=== PATIENT | female | born 1960 ===

== ENCOUNTER 2018-04-23 07:50 | Inpatient (IN) | payer MEDICAID ==
[2018-04-20 08:52] LABS: EOSINOPHILS % (AUTO) 1.4 % (0.0-3.0); HEMATOCRIT 41.4 % (37.0-47.0); HEMOGLOBIN 13.3 G/DL (12.0-16.0); LYMPHOCYTES % (AUTO) 37.5 % (20.0-45.0); MEAN CORPUSCULAR VOLUME 87 FL (80-99); MONOCYTES % (AUTO) 6.5 % (1.0-10.0); NEUTROPHILS % (AUTO) 53.6 % (45.0-75.0); PLATELET COUNT 283 K/UL (150-450); RED BLOOD COUNT 4.73 M/UL (4.20-5.40); RED CELL DISTRIBUTION WIDTH 11.8 % (11.6-14.8); WHITE BLOOD COUNT 6.5 K/UL (4.8-10.8)
[2018-04-20 09:21] LABS: ANION GAP 9 mmol/L (5-15); BLOOD UREA NITROGEN 10 mg/dL (7-18); CALCIUM 8.7 MG/DL (8.5-10.1); CARBON DIOXIDE 28 MMOL/L (21-32); CHLORIDE 105 MMOL/L (98-107); CREATININE 0.7 MG/DL (0.55-1.30); INR 0.9 (0.9-1.1); POTASSIUM 3.6 MMOL/L (3.5-5.1); SODIUM 142 MMOL/L (136-145)
[2018-04-20 09:33] LABS: APPEARANCE,URINE CLEAR; BILIRUBIN, URINE NEGATIVE (NEGATIVE); COLOR,URINE PALE YELLOW; GLUCOSE, URINE (UA) NEGATIVE (NEGATIVE); KETONES,URINE NEGATIVE (NEGATIVE); LEUKOCYTE ESTERASE ,URINE 3+ (NEGATIVE); NITRITE,URINE NEGATIVE (NEGATIVE); PH,URINE 7 (4.5-8.0); PROTEIN,URINE NEGATIVE (NEGATIVE); UROBILINOGEN,URINE NORMAL MG/DL (0.0-1.0)
--- NOTE | 2018-04-20 11:14 | Diagnostic Imaging Report ---
Indication: Cough Technique: 2 views of the chest Comparison: None Findings: Lungs and pleural spaces are clear. The heart size is normal. The bones are unremarkable. No significant interim change. Impression: Negative
--- NOTE | 2018-04-21 13:58 | Cardiology Report ---
APPROVED REPORT EKG Measurement Heart [id number] Normal sinus rhythm Moderate voltage criteria for LVH, may be normal variant Borderline ECG
--- NOTE | 2018-04-22 16:30 | Pre-op HX & Phy Repo 2 SIG ---
DATE OF ADMISSION: 04/23/2018 ANTICIPATED DATE OF SURGERY: April 23, 2018. HISTORY OF PRESENT ILLNESS: The patient is a 57-year-old female in overall good health, who presented recently for screening and had a normal breast examination. Screening mammography revealed a grouping of indeterminate calcifications in the anterior upper outer quadrant of the right breast possibly associated with a mass. She subsequently underwent diagnostic mammogram revealing a nodule in the right breast at 9 o'clock and a 6 mm grouping of heterogeneous calcifications in the upper outer quadrant of the right breast, most likely benign. Ultrasound was then performed revealing a mass at 9 o'clock which was suspicious and located 8 cm from the nipple. Ultrasound-guided core biopsy revealed invasive ductal carcinoma, moderately differentiated. The patient is HER2-negative. She is scheduled to undergo right breast partial mastectomy with preoperative needle localization and right axillary lymph node biopsy. She has been evaluated by Medical Oncology and will follow up after final pathology results. The patient understands she will require radiation therapy after surgery and potential chemotherapy and/or endocrine therapy. PAST MEDICAL HISTORY: MEDICATIONS: None. ALLERGIES: None. OPERATIONS: None. PHYSICAL EXAMINATION: GENERAL: The patient is 4 feet 9 inches, 178 pounds. HEENT: Within normal limits. LUNGS: Clear. HEART: Regular rhythm. BREASTS: Examination revealed [id number]-sized breasts without palpable mass and no skin or nipple changes. There is no palpable axillary or supraclavicular lymphadenopathy. ABDOMEN: Soft. PELVIC: Per primary care physician. RECTAL: Per primary care physician. EXTREMITIES: Without edema. NEUROLOGIC: Physiologic. IMPRESSION: Invasive ductal carcinoma, right breast. PLAN: I have had a full discussion with the patient regarding the nature of her condition, the nature of the surgery, indications, alternatives, options, and risks including bleeding, infection, scarring, distortion of the breast, deviation of the nipple, need for additional surgery based on final pathology, need for additional treatments including radiation therapy and potentially chemotherapy and hormonal therapy. All questions have been answered. The patient understands and agrees to proceed. Remigio Junior M.D. DR: Dee JOB#: [id number] CC:
[2018-04-23] VITALS (14 sets, daily range): BP systolic 116–159; BP diastolic 42–75
[~2018-04-23] VITALS: Ht 142.2 cm; Wt 79.4 kg
[~2018-04-23 07:50] MED LIST: MULTIVITAMINS1 EAC2 ORAL
[2018-04-23] MEDS ORDERED: Bupivacaine 0.5% Inj 30 ml vial INJ ONE (08:59)
[2018-04-23] MEDS ORDERED: Lidocaine 1% 10mg/ml/Epi 0.005mg/ml 30ml vial INJ ONE (08:59)
[2018-04-23] MEDS ORDERED: Midazolam 2mg/2ml Inj ONE (10:20)
[2018-04-23] MEDS ORDERED: fentaNYL 100 mcg/2 mL IV ONE (10:20)
[2018-04-23] MEDS ORDERED: Lidocaine 1% MPF 10mg/ml 5ml ONE (10:24)
[2018-04-23] MEDS ORDERED: Propofol 200mg/20ml IV ONE (10:24)
[2018-04-23] MEDS ORDERED: Ketorolac 30mg Inj ONE (10:24)
[2018-04-23] MEDS ORDERED: Zemuron 50mg/5ml Inj IV ONE (10:35)
--- NOTE | 2018-04-23 10:53 | Pre-Procedure Note/Attestation ---
Pre-Procedure Note/Attestation Complete Prior to Procedure Planned Procedure: right Procedure Narrative: right breast partial mastectomy with needle localization and right axillary lymph node biopsy Indications for Procedure Pre-Operative Diagnosis: invasive ductal carcinoma right breast Attestation I attest that I discussed the nature of the procedure; its benefits; risks and complications; and alternatives (and the risks and benefits of such alternatives ), prior to the procedure, with the patient (or the patient's legal sales service representative). I attest that, if there was a reasonable possibility of needing a blood transfusion, the patient (or the patient's legal sales service representative) was given the [facility] standardized written summary, pursuant to the [place] Blood Safety Act ([place] Health and Safety Code # 1645, as amended). I attest that I re-evaluated the patient just prior to the surgery and that there has been no change in the patient's H&P, except as documented below:none Remigio Junior MD Apr 23, 2018 10:53
[2018-04-23] MEDS ORDERED: Succinylcholine 20mg/ml 10ml vial ONE (11:00)
[2018-04-23] MEDS ORDERED: LR 1000ml ONE (11:00)
[2018-04-23] MEDS ORDERED: NS Irrig 1000ml ONE (11:00)
[2018-04-23] MEDS ORDERED: Sterile Water Irrig 1000ml IRRIG ONE (11:00)
--- NOTE | 2018-04-23 11:02 | Anethesia Preoperative Eval ---
Anesthesia Pre-op PMH/ROS General Date of Evaluation: Apr 23, 2018 Time of Evaluation: 10:59 Anesthesiologist: Ulises ASA Score: ASA 2 Mallampati Score Class I : Soft palate, uvula, fauces, pillars visible Class II: Soft palate, uvula, fauces visible Class III: Soft palate, base of uvula visible Class IV: Only hard plate visible Mallampati Classification: Class II Surgeon: Vernon Diagnosis: R breast CA Surgical Procedure: R partial mastectomy with axillary l/n disection Anesthesia History: none Family History: no anesthesia problems Allergies: Coded Allergies: No Known Allergies (Unverified , 04/22/18) Past Medical History Cardiovascular: Denies: HTN, CAD, ND, valve dz, arrhythmia, other Pulmonary: Denies: asthma, COPD, KYLE, other Gastrointestinal/Genitourinary: Reports: GERD; Denies: CRI, ESRD, other Neurologic/Psychiatric: Denies: dementia, CVA, depression/anxiety, TIA, other Endocrine: Reports: DM - borderline HEENT: Denies: cataract (L), cataract (R), glaucoma, VENETIE (L), VENETIE (R), other Hematology/Immune: Denies: anemia, DVT, bleeding disorder, other Musculoskeletal/Integumentary: Denies: OA, RA, DJD, DDD, edema, other Other: obesity PMH Narrative: as above PSxH Narrative: BTL Anesthesia Pre-op Phys. Exam Physician Exam Last Vital Signs Date Time Temp Pulse Resp B/P (MAP) Pulse Ox O2 Delivery O2 Flow Rate FiO2 04/23/18 08:18 97.9 59 20 159/75 (103) 100 97.9 04/23/18 08:10 Room Air Constitutional: NAD Neurologic: CN 2-12 intact Cardiovascular: no M/R/G Respiratory: CTA Gastrointestinal: other - obesity Airway Exam Mallampati Score: Class II MO: full Neck: short ROM: full Teeth: missing Dentures: no upper, no lower Anesthesia Pre-op A/P Labs see chart Studies Pre-op Studies: EKG - NSR Risk Assessment & Plan Assessment: ASA 2 Plan: GA with ETT PONV prevention Status Change Before Surgery: No Pre-Antibiotics Drug: Ancef 1 gr Given Within 1 Hr of Incision: Yes Time Given: 11:20 Ron Montgomery MD Apr 23, 2018 11:02
[2018-04-23] MEDS ORDERED: Neostigmine 1mg/ml 10ml Inj ONE (11:38)
[2018-04-23] MEDS ORDERED: Glycopyrrolate 0.2mg/ml 1ml Vial ONE (11:38)
[2018-04-23] MEDS ORDERED: LR 1000ml 1,000 ML IVLG SCH (11:41)
[2018-04-23] MEDS ORDERED: Meperidine 50mg/ml Inj(FOR RIGORS ONLY) IV PRN (11:45)
[2018-04-23] MEDS ORDERED: Ketorolac 30mg Inj IV PRN (11:45)
[2018-04-23] MEDS ORDERED: Metoclopramide 10mg/2ml Inj IVP PRN (11:45)
[2018-04-23] MEDS ORDERED: DiphenhydrAMINE 50mg/ml Inj IVP PRN (11:45)
[2018-04-23] MEDS ORDERED: fentaNYL 100 mcg/2 mL IV PRN (11:45)
[2018-04-23] MEDS ORDERED: HYDROmorphone 1mg/ml Carpuject SUBQ PRN (12:45)
--- NOTE | 2018-04-23 12:51 | Brief Operative Note ---
Immediate Post Operative Note Operative Note Pre-op Diagnosis: invasive ductal carcinoma right breast Procedure: right breast partial mastectomy with needle localization and right axillary lymph node biopsy Post-op Diagnosis: same Post-op Diagnosis: same as pre-op Findings: consistent w/pre-op dx studies Surgeon: ap Anesthesiologist: evonne Anesthesia: general Specimen: yes - right breast cancer; right axillary lymph node Complications: none Condition: stable Fluids: see anesthesai record Estimated Blood Loss: minimal Drains: JOSEFINA Implant(s) used?: No Remigio Junior MD Apr 23, 2018 12:51
--- NOTE | 2018-04-23 12:52 | Immediate Post-Op Evaluation ---
Immediate Post-Op Evalulation Immediate Post-Op Evalulation Procedure: R partial mastectomy with axillary l/n disection Date of Evaluation: Apr 23, 2018 Time of Evaluation: 12:51 IV Fluids: 1100 Blood Products: none Estimated Blood Loss: min Urinary Output: none Blood Pressure Systolic: 128 Blood Pressure Diastolic: 58 Pulse Rate: 67 Respiratory Rate: 20 O2 Sat by Pulse Oximetry: 99 Temperature (Fahrenheit): 97.6 Pain Score (1-10): 1 Nausea: No Vomiting: No Complications none Patient Status: reacts, patent, extubated, none Hydration Status: adequate Ron Montgomery MD Apr 23, 2018 12:52
[2018-04-23] MEDS: D5 1/2NS w/KCl 20mEq 1,000 ML IV SCH (16:03)
[2018-04-23] MEDS: Norco 5mg/325mg tab ORAL PRN ×2 (16:05→21:23)
--- NOTE | 2018-04-23 17:00 | Operative Note - Dictated ---
DATE OF OPERATION: 04/23/2018 SURGEON: Remigio Junior M.D. TELEVISION PICTURE TUBE REBUILDER: None. ANESTHESIOLOGIST: Ron Montgomery M.D. TYPE OF ANESTHESIA: General endotracheal. PREOPERATIVE DIAGNOSIS: Invasive ductal carcinoma, right breast. POSTOPERATIVE DIAGNOSIS: Invasive ductal carcinoma, right breast. OPERATION PERFORMED: Right breast partial mastectomy with preoperative needle localization and right axillary lymph node biopsy. DESCRIPTION OF PROCEDURE: The patient was taken to the operating room and under general anesthesia with sequential compression device stockings in place and having received intravenous antibiotics, the patient was prepped and draped in usual fashion including the right upper extremity in the sterile field. The lesion was located in the lateral aspect of the breast. The wire from needle localization was prepped into the field. A curvilinear vertical incision was made in the outer breast and flaps dissected circumferentially. The area of the wire was resected with a wide margin achieving hemostasis with cautery. The specimen was oriented with suture markers anterior, medial, and superior. Additional tissue was taken for superior margin. The pathologist examined the specimen which contained the lesion. The field was irrigated and hemostasis was secured. The incision was closed with interrupted subcutaneous deep dermal 3-0 Vicryl sutures followed by continuous 4-0 Monocryl subcuticular suture. Then attention was directed to the right axilla where a transverse curvilinear axillary incision was made achieving hemostasis with cautery and incising the clavipectoral fascia. Palpable lymph node was readily evident and was resected with clips and cautery for hemostasis. The pathologist confirmed the presence of lymph node. Through a separate stab incision inferior, a 19-mm Loco drain was placed into the axilla and sutured to the skin with a 2-0 silk suture. The field was irrigated and hemostasis was secured. The clavipectoral fascia was closed with interrupted 3-0 Vicryl, subcutaneous tissue closed with interrupted 3-0 Vicryl, and the skin closed with continuous 4-0 Monocryl subcuticular suture. Tincture of benzoin and half-inch Steri-Strips were applied to both incisions followed by dry sterile dressings and postoperative surgical brassiere applied. The patient tolerated the procedure well and left the operating room in good condition. Remigio Junior M.D. DR: Dee JOB#: [id number] CC:
[2018-04-24] VITALS: BP 157/78
[2018-04-24] MEDS: D5 1/2NS w/KCl 20mEq 1,000 ML IV SCH (00:34)
[2018-04-24 04:00] VITALS: BP 135/68
[2018-04-24] MEDS: Norco 5mg/325mg tab ORAL PRN ×3 (05:48→17:29)
[2018-04-24 08:00] VITALS: BP 132/65
--- NOTE | 2018-04-24 08:17 | General Progress Note ---
Progress Note Progress Note AVSS Did not take much po so still on IV fluids. Limited ambulation. Breast and axilla incisions clean with intact steristrips - mild soft tissue swelling JOSEFINA drain 17cc serosang Imp. Stable Plan; Regular diet, d/c IV fluids ambulate TID with assistance instruct re care of JOSEFINA drain Remigio Junior MD Apr 24, 2018 08:17
--- NOTE | 2018-04-24 10:06 | 48 Hour Post Anesthesia Eval ---
Post Anesthesia Evaluation Procedure: R partial mastectomy with axillary l/n disection Date of Evaluation: Apr 24, 2018 Time of Evaluation: 06:50 Blood Pressure Systolic: 135 0: 68 Pulse Rate: 68 Respiratory Rate: 17 Temperature (Fahrenheit): 98 O2 Sat by Pulse Oximetry: 97 Airway: patent Nausea: No Vomiting: No Pain Intensity: 2 Hydration Status: adequate Cardiopulmonary Status: at baseline Mental Status/LOC: patient returned to baseline Post-Anesthesia Complications: 0 Follow-up care needed: N/A - further care as per primary team Violeta Duran MD Apr 24, 2018 10:06
[2018-04-24 12:00] VITALS: BP 146/73
[2018-04-24 16:00] VITALS: BP 147/74
--- NOTE | 2018-04-25 11:02 | General Progress Note ---
Progress Note Progress Note AVSS Doing well now with decreased pain and good po intake. right breast and axilla incisions clean/dry Josefina 17 Imp. doing well Plan:discharge to empty JOSEFINA drain TID and record outputs tylenol and/or ibuprofen prn pain f/u office 04/28 Remigio Junior MD Apr 25, 2018 11:02
--- NOTE | 2018-04-28 13:31 | Discharge Summary ---
Discharge Summary Hospital Course Date of Admission Apr 23, 2018 at 13:44 Date of Discharge Apr 25, 2018 at 12:35 Admitting Diagnosis carcinoma right breast Reason for Hospitalization: elective surgery CAYETANO Read is a 57 year old female who was admitted on Apr 23, 2018 at 13:44 for Carcinoma Right Breast. Patient admitted for elective surgery. Procedures s/p 04/23/[address] Junior Right breast partial mastectomy with preoperative needle localization and right axillary lymph node biopsy. Hospital Course s/p surgery course of recovery was uneventful initially IV fluids until tolerated diet, a/emetic prn pain management addressed , and pain controlled right breast and axilla incision clean with intact steri-strips JOSEFINA drain output closely monitored and recorded diet started as tolerated initially ambulated with assistance able to tolerate diet ambulated freely voided without difficulty discharge instruction provided patient was educated on JOSEFINA drain care and need to record output tid follow-up with surgeon as outpatient on 04/28 pain management with Tylenol and ibuprofen prn FINAL DIAGNOSES Invasive ductal carcinoma, right breast s/p right breast partial [id number] Discharge Condition Upon Discharge: stable Discharge Disposition Patient was discharged home Discharge Instructions Discharge Instructions Special Instructions I have been assigned to complete a D/C Summary on this account. I was not involved in the patient management Deepika Winn NP Apr 28, 2018 13:31
== END 2018-04-25 12:35 | disposition home or self-care (01) | DRG 363 ==
LOC: SUR 07:50 → 3E 13:44
PROC: 07B50ZX Excision of Right Axillary Lymphatic, Open Approach, Diagnostic (ICD-10-PCS; 2018-04-23)
PROC: 0HBT0ZZ Excision of Right Breast, Open Approach (ICD-10-PCS; principal; 2018-04-23 11:00)
DX: C50.811 Malignant neoplasm of overlapping sites of right female breast (principal)
CPT/HCPCS: 36415; 71046; 80048; 81001; 85025; 85610; 85730; 93005; 94003; 94150; J2250; J2405; J2710